=== PATIENT | female | born 1995 | race Caucasian/White ===

== ENCOUNTER 2019-11-30 20:27 | Emergency (ER) | payer OTHER, MEDICAID ==
[~2019-11-30] VITALS: Ht 152.4 cm; Wt 52.6 kg
[2019-11-30 20:50] VITALS: Ht 152.4 cm; Wt 52.6 kg
[2019-11-30 22:30] VITALS: BP 112/68
== END 2019-11-30 22:30 | disposition home or self-care (01) ==
LOC: ED 20:27
DX: J02.9 Acute pharyngitis, unspecified (principal)
CPT/HCPCS: J0561; J1885; J2540